=== PATIENT | female | born 2005 | race Two or more races ===

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

== ENCOUNTER 2023-08-19 15:24 | Emergency (ER) | payer OTHER, SELFPAY ==
--- NOTE | ~2023-08-19 | US_ITS ---
EXAMINATION: US pelvic complete w TV DATE: 08/19/2023 18:30 INDICATION: pelvic pain TECHNIQUE: Multiple transabdominal and endovaginal sonographic images of the pelvis were obtained. COMPARISON: None. FINDINGS: Uterus: 6.3 x 3.0 x 4.8 cm. IUD, in good position Endometrial complex measures 4 mm. Right Ovary: 2.4 x 3.4 x 1.8 cm. Vascular flow is present. 1.0 cm cyst or dominant follicle. Left Ovary: 3.2 x 1.7 x 2.2 cm. Vascular flow is present. There is physiologic volume free fluid in the pelvis. IMPRESSION: Normal pelvic sonogram findings. Reviewed, dictated and finalized at location [facility] [employer] MAINTAIN[employer]
[2023-08-19 15:30] VITALS: BP 97/80; PULSE 77; RESP 20; TEMP 36.6; O2SAT 99
--- NOTE | 2023-08-19 15:45 | ED.GENADULT ---
HPI - General Adult General Chief complaint: Recheck/Abnormal Lab/Rx <Layne Myers October, CUSTOMER SERVICE AGENT - Last Filed: 08/19/23 15:51> Stated complaint: IUD dislodged <Layne Myers October, CUSTOMER SERVICE AGENT - Last Filed: 08/19/23 15:51> Time Seen by Provider: 08/19/23 15:45 <Layne Myers October, CUSTOMER SERVICE AGENT - Last Filed: 08/19/23 15:51> Focused HPI: Veronica Saldivar is a 17 y/o female who presents wt reports of getting an IUD placed about 1 year ago in [facility], and she started to have some intermittent sharp pain in her uterus, she states that the pain in her lower pelvic region and her lower back has become worse and more constant. She also states that this weekend she noticed that sex is becoming painful. She called her OB and they wanted her to get evaluated in the ED. She is concerned that her IUD has moved or is poking her inside. Denies dysuria / denies fever/chills/ denies wanting to be tested for STI's today. GENERAL: Well-appearing, well-nourished, and in no acute distress. HEAD: Normocephalic, atraumatic. CHEST: Clear to auscultation. ?No respiratory distress. HEART: Regular rate and rhythm.? NEURO: ?Alert and oriented x3. Patient screened in triage and initial orders placed.? ?Additional care and disposition to be based upon?diagnostic testing and treatment. <Layne Myers October, CUSTOMER SERVICE AGENT - Last Filed: 08/19/23 15:51> Focused HPI: Veronica Saldivar is a 17 y/o female who presents wt reports of getting an IUD placed about 1 year ago in [place], and she started to have some intermittent sharp pain in her uterus, she states that the pain in her lower pelvic region and her lower back has become worse and more constant. She also states that this weekend she noticed that sex is becoming painful. She called her OB and they wanted her to get evaluated in the ED. She is concerned that her IUD has moved or is poking her inside. Denies dysuria / denies fever/chills/ denies wanting to be tested for STI's today. GENERAL: Well-appearing, well-nourished, and in no acute distress. HEAD: Normocephalic, atraumatic. CHEST: Clear to auscultation. ?No respiratory distress. HEART: Regular rate and rhythm.? NEURO: ?Alert and oriented x3. Patient screened in triage and initial orders placed.? ?Additional care and disposition to be based upon?diagnostic testing and treatment. <Elina Lanza PA-C - Last Filed: 08/19/23 19:14> Source: patient <Elina Lanza PA-C - Last Filed: 08/19/23 19:14> Mode of arrival: ambulatory <Elina Lanza PA-C - Last Filed: 08/19/23 19:14> Limitations: no limitations <Elina Lanza PA-C - Last Filed: 08/19/23 19:14> Related Data Allergies/adverse reactions: Allergies Allergy/AdvReac Type Severity Reaction Status Date / Time No Known Allergies Allergy Verified 08/19/23 15:26 <Layne Grimm, CUSTOMER SERVICE AGENT - Last Filed: 08/19/23 15:51> Review of Systems Review of Systems: CONSTITUTIONAL: Denies fever GASTROINTESTINAL: Reports abdominal/pelvic pain. Denies nausea, vomiting, or diarrhea. GENITOURINARY: Denies dysuria or hematuria. <Elina Lanza PA-C - Last Filed: 08/19/23 19:14> All systems reviewed & are unremarkable except as noted in HPI and below <Elina Lanza PA-C - Last Filed: 08/19/23 19:14> PMFSH Past Medical History Medical History: Medical History (Updated 08/19/23 @ 19:07 by Elina Lanza PA-C) No active medical problems <Layne Myers October, CUSTOMER SERVICE AGENT - Last Filed: 08/19/23 15:51> Social History Social History: Social History Substance use type: does not use <Layne Grimm CUSTOMER SERVICE AGENT - Last Filed: 08/19/23 15:51> Exam Narrative: GENERAL: Well-appearing, well-nourished, and in no acute distress. HEAD: Normocephalic, atraumatic. EYES: EOMI. CHEST: Clear to auscultation. No respiratory distress. No wheezes rales or rhonchi HEART: Regular rate and rhythm. No murmur heard. Normal peripheral pulses. ABDOMEN: Soft, nontender
[2023-08-19 16:16] LABS: Basophils Percent Auto 0.7 % (0.2-1.2); Eosinophils Percent Auto 0.7 % (0-4.4); Hematocrit 42.5 % (37.0-47.0); Hemoglobin 14.4 g/dL (12.0-15.0); Immature Granulocyte Absolute 0.01 K/mm3 (0.00-0.031); Immature Granulocyte Percent A 0.2 % (0-0.5); Lymphocytes Absolute Auto 1.76 K/mm3 (0.9-3.2); Mean Corpuscular HGB Conc 33.9 g/dl (32-36); Mean Corpuscular Hemoglobin 30.9 pg (26-34); Mean Corpuscular Volume 91.2 fl (80-100); Mean Platelet Volume 9.7 fl (7.4-10.4); Monocytes Absolute Auto 0.5 K/mm3 (0.1-0.6); Monocytes Percent Auto 7.8 % (2.6-8.5); Neutrophils Absolute Auto 3.7 K/mm3 (1.3-6.7); Neutrophils Percent Auto 61.6 % (45.5-73.1); Platelet Count Result 182 k/mm3 (150-375); Red Blood Count 4.66 M/mm3 (4.2-5.4); Red Cell Distribution Width 12.4 % (11.5-14.5); White Blood Count 6.1 K/mm3 (4.5-10.0)
[2023-08-19 16:22] LABS: Appearance Urine Clear (Clear); Bacteria Urine Rare /hpf; Bilirubin Urine Negative (Negative); Blood Urine Negative (Negative); Color Urine Yellow (Yellow); Glucose Urine UA Negative (Negative); Ketones Urine Negative (Negative); Leukocyte Esterase Ur 2+ LEU/UL (Negative); Nitrate Urine Negative (Negative); Non Pathogenic Casts 0-2; Protein Urine Negative (Negative); RBC Urine 0-2 /hpf (0-2); Specific Grav Ur 1.014 (1.001-1.035); Squamous Epithelial Cell Urine Few /hpf (Few); Urobilinogen Urine 0.2 mg/dL (<2.0); pH Urine 6.5 (5.0-9.0)
[2023-08-19 16:26] LABS: Add Urine Microscopic? YES
[2023-08-19 16:27] LABS: Anion Gap 5 mmol/L (8-16); Blood Urea Nitrogen 13 mg/dL (8-21); Calcium 10.4 mg/dL (8.9-10.7); Carbon Dioxide 28 mmol/L (22-30); Chloride 106 mmol/L (98-107); Estimated Glomerular Filt Rate > 60; Glucose 95 mg/dL (65-110); Potassium 4.3 mmol/L (3.4-5.0); Sodium 139 mmol/L (134-143)
--- NOTE | 2023-08-19 19:05 | PC.NURSE ---
pelvic exam done by provider with fha underwriter at bedside
[2023-08-19 19:36] VITALS: BP 102/80; PULSE 72; RESP 20; O2SAT 100
== END 2023-08-19 19:36 | disposition home or self-care (01) ==
PROVIDERS: Nurse Practitioner Family; Emergency Provider Physician Assistant; PCP Physician Assistant
DX: R10.2 Pelvic and perineal pain (principal); Z97.5 Presence of (intrauterine) contraceptive device
CPT/HCPCS: 36415; 76830; 76856; 80048; 81001; 81025; 85025; 87086; 99284